=== PATIENT | female | born 1985 | race Asian ===

== ENCOUNTER 2017-06-25 08:56 | Inpatient (IN) | payer MEDICAID ==
[2017-06-25] MEDS: ONDANSETRON 4 MG INJ IV ×4 (09:11→22:03)
[2017-06-25] MEDS: HYDROmorphONE 0.5 MG/0.5 ML SYG IV ×3 (09:11→23:00)
[2017-06-25] MEDS: SOD CHLORIDE 0.9% 1,000 ML IV ×3 (09:11→23:00)
[2017-06-25 09:12] LABS: ADD MAN DIFF? NO
[2017-06-25 09:16] LABS: BASOPHILS % 0.3 % (0.0-2.0); EOSINOPHILS # 0.1 10^3/ul (0.0-0.5); EOSINOPHILS % 0.5 % (0.0-7.0); HEMATOCRIT 40.4 % (37.0-47.0); HEMOGLOBIN 13.4 g/dl (12.0-16.0); LYMPHOCYTES # 2.4 10^3/ul (0.8-2.9); MEAN CORPUSCULAR HEMOGLOBIN 30.2 pg (29.0-33.0); MEAN CORPUSCULAR HGB CONC 33.2 g/dl (32.0-37.0); MEAN CORPUSCULAR VOLUME 91.2 fl (82.0-101.0); MEAN PLATELET VOLUME 9.7 fl (7.4-10.4); MONOCYTE # 0.3 10^3/ul (0.3-0.9); MONOCYTES % 2.6 % (0.0-11.0); NEUTROPHIL # 8.1 10^3/ul (1.6-7.5); NEUTROPHILS % 74.2 % (39.0-77.0); PLATELET COUNT 415 10^3/UL (140-415); RED BLOOD COUNT 4.43 10^6/ul (4.20-5.40); RED CELL DISTRIBUTION WIDTH 13.2 % (11.5-14.5)
[2017-06-25 09:16] LABS: WHITE BLOOD COUNT 10.9 10^3/ul (4.8-10.8)
[2017-06-25 09:38] LABS: ALANINE AMINOTRANSFERASE 28 IU/L (13-69); ALBUMIN 4.6 g/dl (3.3-4.9); ALBUMIN/GLOBULIN RATIO 1.21; ALKALINE PHOSPHATASE 74 IU/L (42-121); ANION GAP 21 (8-16); ASPARTATE AMINO TRANSFERASE 21 IU/L (15-46); BLOOD UREA NITROGEN 11 mg/dl (7-20); CALCIUM 9.1 mg/dl (8.4-10.2); CARBON DIOXIDE 23 mmol/L (21-31); CHLORIDE 107 mmol/L (97-110); CREATININE 0.59 mg/dl (0.44-1.00); GLUCOSE 133 mg/dl (70-220); LIPASE 30 U/L (23-300); POTASSIUM 3.9 mmol/L (3.5-5.1); SODIUM 147 mmol/L (135-144); TOTAL PROTEIN 8.4 g/dl (6.1-8.1)
[2017-06-25 11:56] LABS: ADD UMIC YES; UR ASCORBIC ACID NEGATIVE (NEGATIVE); UR BACTERIA FEW /HPF (NONE SEEN); UR BILIRUBIN (Dip) NEGATIVE (NEGATIVE); UR BLOOD (Dip) 3+ mg/dL (NEGATIVE); UR CLARITY CLOUDY (CLEAR); UR COLOR RED (YELLOW); UR GLUCOSE (Dip) NEGATIVE (NEGATIVE); UR KETONES (Dip) NEGATIVE (NEGATIVE); UR LEUKOCYTE ESTERASE (Dip) NEGATIVE Leu/ul (NEGATIVE); UR MUCUS FEW /HPF (NONE SEEN); UR NITRITE (Dip) NEGATIVE (NEGATIVE); UR RBC > 182 /HPF (0-5); UR SPECIFIC GRAVITY (Dip) 1.023 (1.003-1.030); UR SQUAMOUS EPITHELIAL CELL FEW /HPF (FEW); UR TOTAL PROTEIN (Dip) 2+ mg/dl (NEGATIVE); UR UROBILINOGEN (Dip) NEGATIVE (NEGATIVE); UR WBC 62 /HPF (0-5)
[2017-06-25] MEDS: SOD CHLORIDE 0.9% 100 ML (12:53)
[2017-06-25] MEDS: IOHEXOL 300MG/ML 150 ML BTL (12:53)
[2017-06-25 13:21] LABS: ABNORMAL IP MESSAGE 1; ADD MAN DIFF? NO; BASOPHILS % 0.2 % (0.0-2.0); HEMATOCRIT 36.2 % (37.0-47.0); HEMOGLOBIN 11.9 g/dl (12.0-16.0); LYMPHOCYTES # 0.7 10^3/ul (0.8-2.9); LYMPHOCYTES % 2.8 % (15.0-51.0); MEAN CORPUSCULAR HEMOGLOBIN 30.4 pg (29.0-33.0); MEAN CORPUSCULAR HGB CONC 32.9 g/dl (32.0-37.0); MEAN CORPUSCULAR VOLUME 92.3 fl (82.0-101.0); MEAN PLATELET VOLUME 9.8 fl (7.4-10.4); MONOCYTE # 0.7 10^3/ul (0.3-0.9); MONOCYTES % 2.8 % (0.0-11.0); NEUTROPHIL # 22.3 10^3/ul (1.6-7.5); NEUTROPHILS % 93.5 % (39.0-77.0); PLATELET COUNT 331 10^3/UL (140-415); RED BLOOD COUNT 3.92 10^6/ul (4.20-5.40); RED CELL DISTRIBUTION WIDTH 13.4 % (11.5-14.5)
[2017-06-25 13:21] LABS: WHITE BLOOD COUNT 23.8 10^3/ul (4.8-10.8)
[2017-06-25] MEDS ORDERED: ACETAMINOPHEN 325 MG TAB PO (14:30)
[2017-06-25] MEDS ORDERED: ONDANSETRON 4 MG INJ IV (14:30)
[2017-06-25 16:14] LABS: HEMATOCRIT 39.8 % (37.0-47.0); HEMOGLOBIN 13.2 g/dl (12.0-16.0)
[2017-06-25] MEDS: morphine 2 MG INJ IV (16:14)
[2017-06-25] MEDS: LEVOFLOXACIN 500MG/D5W (PMX) 100 ML IVPB (16:17)
[2017-06-25 16:34] LABS: INR 0.98; PROTIME 13.1 Sec (11.9-14.9)
[2017-06-25 16:35] LABS: PARTIAL THROMBOPLASTIN TIME 27.6 Sec (25.0-35.0)
[2017-06-25] MEDS: DOCUSATE SODIUM 100 MG CAP PO (21:00)
[2017-06-26] MEDS: ACETAMINOPHEN 325 MG TAB PO ×6 (00:23→21:31)
[2017-06-26] MEDS: SOD CHLORIDE 0.9% 1,000 ML IV ×4 (00:28→20:27)
[2017-06-26 00:44] LABS: HEMATOCRIT 35.4 % (37.0-47.0); HEMOGLOBIN 11.6 g/dl (12.0-16.0)
[2017-06-26 01:15] LABS: LACTIC ACID 1.3 mmol/L (0.5-2.0)
[2017-06-26 05:19] LABS: ADD MAN DIFF? NO
[2017-06-26 05:29] LABS: BASOPHILS % 0.2 % (0.0-2.0); EOSINOPHILS % 0.1 % (0.0-7.0); HEMATOCRIT 37.1 % (37.0-47.0); HEMOGLOBIN 12.1 g/dl (12.0-16.0); LYMPHOCYTES # 2.2 10^3/ul (0.8-2.9); LYMPHOCYTES % 9.7 % (15.0-51.0); MEAN CORPUSCULAR HEMOGLOBIN 29.8 pg (29.0-33.0); MEAN CORPUSCULAR HGB CONC 32.6 g/dl (32.0-37.0); MEAN CORPUSCULAR VOLUME 91.4 fl (82.0-101.0); MEAN PLATELET VOLUME 9.9 fl (7.4-10.4); MONOCYTE # 0.5 10^3/ul (0.3-0.9); MONOCYTES % 2.1 % (0.0-11.0); NEUTROPHIL # 19.4 10^3/ul (1.6-7.5); NEUTROPHILS % 87.2 % (39.0-77.0); PLATELET COUNT 386 10^3/UL (140-415); RED BLOOD COUNT 4.06 10^6/ul (4.20-5.40); RED CELL DISTRIBUTION WIDTH 13.4 % (11.5-14.5)
[2017-06-26 05:29] LABS: WHITE BLOOD COUNT 22.3 10^3/ul (4.8-10.8)
[2017-06-26 05:48] LABS: PROTIME 15.4 Sec (11.9-14.9); PT RATIO 1.2
[2017-06-26 05:49] LABS: PARTIAL THROMBOPLASTIN TIME 35.5 Sec (25.0-35.0)
[2017-06-26 06:04] LABS: ALANINE AMINOTRANSFERASE 16 IU/L (13-69); ALBUMIN 3.9 g/dl (3.3-4.9); ALBUMIN/GLOBULIN RATIO 1.18; ALKALINE PHOSPHATASE 52 IU/L (42-121); ANION GAP 19 (8-16); ASPARTATE AMINO TRANSFERASE 20 IU/L (15-46); BILIRUBIN,INDIRECT 2.1 mg/dl (0-1.1); BILIRUBIN,TOTAL 2.1 mg/dl (0.2-1.3); BLOOD UREA NITROGEN 9 mg/dl (7-20); CALCIUM 8.6 mg/dl (8.4-10.2); CARBON DIOXIDE 26 mmol/L (21-31); CHLORIDE 105 mmol/L (97-110); CREATININE 0.62 mg/dl (0.44-1.00); GLUCOSE 112 mg/dl (70-220); MAGNESIUM 1.9 mg/dl (1.7-2.5); POTASSIUM 3.7 mmol/L (3.5-5.1); SODIUM 146 mmol/L (135-144); TOTAL PROTEIN 7.2 g/dl (6.1-8.1)
[2017-06-26] MEDS: HYDROmorphONE 0.5 MG/0.5 ML SYG IV ×3 (08:02→20:27)
[2017-06-26] MEDS: FAMOTIDINE 20 MG INJ IV (09:01)
[2017-06-26] MEDS: DOCUSATE SODIUM 100 MG CAP PO ×2 (09:01→20:27)
[2017-06-26] MEDS: LEVOFLOXACIN 500MG/D5W (PMX) 100 ML IVPB (16:02)
[2017-06-27] MEDS: ACETAMINOPHEN 325 MG TAB PO ×2 (04:00→05:04)
[2017-06-27] MEDS: SOD CHLORIDE 0.9% 1,000 ML IV ×3 (05:04→19:28)
[2017-06-27 06:13] LABS: ADD MAN DIFF? NO
[2017-06-27 06:15] LABS: BASOPHILS % 0.1 % (0.0-2.0); EOSINOPHILS % 0.1 % (0.0-7.0); HEMATOCRIT 33.6 % (37.0-47.0); HEMOGLOBIN 11.2 g/dl (12.0-16.0); LYMPHOCYTES # 0.8 10^3/ul (0.8-2.9); LYMPHOCYTES % 4.4 % (15.0-51.0); MEAN CORPUSCULAR HEMOGLOBIN 30.4 pg (29.0-33.0); MEAN CORPUSCULAR HGB CONC 33.3 g/dl (32.0-37.0); MEAN CORPUSCULAR VOLUME 91.1 fl (82.0-101.0); MEAN PLATELET VOLUME 10.1 fl (7.4-10.4); MONOCYTE # 0.3 10^3/ul (0.3-0.9); MONOCYTES % 1.4 % (0.0-11.0); NEUTROPHIL # 17.6 10^3/ul (1.6-7.5); NEUTROPHILS % 93.6 % (39.0-77.0); PLATELET COUNT 329 10^3/UL (140-415); RED BLOOD COUNT 3.69 10^6/ul (4.20-5.40); RED CELL DISTRIBUTION WIDTH 13.6 % (11.5-14.5)
[2017-06-27 06:15] LABS: WHITE BLOOD COUNT 18.8 10^3/ul (4.8-10.8)
[2017-06-27 06:34] LABS: ANION GAP 15 (8-16); BLOOD UREA NITROGEN 6 mg/dl (7-20); CALCIUM 8.3 mg/dl (8.4-10.2); CARBON DIOXIDE 21 mmol/L (21-31); CHLORIDE 109 mmol/L (97-110); CREATININE 0.59 mg/dl (0.44-1.00); GLUCOSE 96 mg/dl (70-220); MAGNESIUM 1.8 mg/dl (1.7-2.5); POTASSIUM 4.2 mmol/L (3.5-5.1); SODIUM 141 mmol/L (135-144)
[2017-06-27 06:44] LABS: INR 1.21; PROTIME 15.5 Sec (11.9-14.9); PT RATIO 1.2
[2017-06-27 06:45] LABS: PARTIAL THROMBOPLASTIN TIME 39.4 Sec (25.0-35.0)
[2017-06-27] MEDS: DOCUSATE SODIUM 100 MG CAP PO ×2 (08:00→20:52)
[2017-06-27] MEDS: FAMOTIDINE 20 MG INJ IV (08:00)
[2017-06-27] MEDS ORDERED: FENTAnyl 50 MCG/ML VIAL ×2 (10:04→11:18)
[2017-06-27] MEDS ORDERED: ROCURONIUM 50 MG INJ (10:26)
[2017-06-27] MEDS ORDERED: CLINDAMYCIN 900 MG/D5W (PMX) 50 ML IVPB (10:26)
[2017-06-27] MEDS ORDERED: LIDOCAINE 100 MG SYRINGE (10:26)
[2017-06-27] MEDS ORDERED: PROPOFOL 20 ML (10:26)
[2017-06-27] MEDS ORDERED: SUCCINYLCHOLINE CHLORIDE 100 MG/5 ML SYG IV (10:26)
[2017-06-27] MEDS ORDERED: SUGAMMADEX SODIUM 200 MG/2 ML VIAL IV (10:27)
[2017-06-27] MEDS ORDERED: ROPIVACAINE 0.5 % 30 ML VIAL (11:11)
[2017-06-27] MEDS ORDERED: MEPERIDINE 25 MG INJ IV (11:30)
[2017-06-27] MEDS ORDERED: ONDANSETRON 4 MG INJ IV (11:30)
[2017-06-27] MEDS ORDERED: METOCLOPRAMIDE 10 MG INJ IV (11:30)
[2017-06-27] MEDS ORDERED: HYDROmorphONE (0.2 MG/ML) 10ML SYG IV ×2 (11:30)
[2017-06-27] MEDS ORDERED: FENTAnyl 50 MCG/ML VIAL IV ×2 (11:30)
[2017-06-27] MEDS ORDERED: DIPHENHYDRAMINE 50 MG INJ IV (11:30)
[2017-06-27 12:35] LABS: ADD MAN DIFF? NO
[2017-06-27 12:40] LABS: BASOPHILS % 0.2 % (0.0-2.0); EOSINOPHILS % 0.2 % (0.0-7.0); HEMOGLOBIN 11.7 g/dl (12.0-16.0); LYMPHOCYTES # 1.6 10^3/ul (0.8-2.9); LYMPHOCYTES % 8.4 % (15.0-51.0); MEAN CORPUSCULAR HGB CONC 32.5 g/dl (32.0-37.0); MEAN CORPUSCULAR VOLUME 92.3 fl (82.0-101.0); MEAN PLATELET VOLUME 9.5 fl (7.4-10.4); MONOCYTE # 0.4 10^3/ul (0.3-0.9); MONOCYTES % 2.2 % (0.0-11.0); NEUTROPHIL # 16.3 10^3/ul (1.6-7.5); NEUTROPHILS % 87.9 % (39.0-77.0); PLATELET COUNT 332 10^3/UL (140-415); RED CELL DISTRIBUTION WIDTH 13.6 % (11.5-14.5)
[2017-06-27 12:40] LABS: WHITE BLOOD COUNT 18.5 10^3/ul (4.8-10.8)
[2017-06-27] MEDS: ONDANSETRON 4 MG INJ IV ×2 (12:51→17:04)
[2017-06-27] MEDS: HYDROmorphONE (0.2 MG/ML) 10ML SYG IV (12:51)
[2017-06-27] MEDS ORDERED: ACETAMINOPHEN 325 MG TAB PO (13:00)
[2017-06-27] MEDS: LEVOFLOXACIN 500MG/D5W (PMX) 100 ML IVPB (16:11)
[2017-06-27] MEDS: HYDROmorphONE 0.5 MG/0.5 ML SYG IV (20:52)
[2017-06-28] MEDS: SOD CHLORIDE 0.9% 1,000 ML IV ×3 (05:52→23:00)
[2017-06-28 06:42] LABS: ADD MAN DIFF? NO
[2017-06-28 06:45] LABS: EOSINOPHILS # 0.1 10^3/ul (0.0-0.5); EOSINOPHILS % 0.4 % (0.0-7.0); HEMATOCRIT 28.1 % (37.0-47.0); HEMOGLOBIN 9.4 g/dl (12.0-16.0); LYMPHOCYTES # 1.9 10^3/ul (0.8-2.9); LYMPHOCYTES % 15.1 % (15.0-51.0); MEAN CORPUSCULAR HEMOGLOBIN 30.4 pg (29.0-33.0); MEAN CORPUSCULAR HGB CONC 33.5 g/dl (32.0-37.0); MEAN CORPUSCULAR VOLUME 90.9 fl (82.0-101.0); MEAN PLATELET VOLUME 9.9 fl (7.4-10.4); MONOCYTE # 0.4 10^3/ul (0.3-0.9); MONOCYTES % 3.1 % (0.0-11.0); NEUTROPHIL # 10.2 10^3/ul (1.6-7.5); PLATELET COUNT 339 10^3/UL (140-415); RED BLOOD COUNT 3.09 10^6/ul (4.20-5.40); RED CELL DISTRIBUTION WIDTH 13.6 % (11.5-14.5)
[2017-06-28 06:45] LABS: WHITE BLOOD COUNT 12.6 10^3/ul (4.8-10.8)
[2017-06-28 07:11] LABS: ANION GAP 11 (8-16); BLOOD UREA NITROGEN 5 mg/dl (7-20); CALCIUM 7.8 mg/dl (8.4-10.2); CARBON DIOXIDE 24 mmol/L (21-31); CHLORIDE 109 mmol/L (97-110); CREATININE 0.56 mg/dl (0.44-1.00); GLUCOSE 91 mg/dl (70-220); POTASSIUM 3.3 mmol/L (3.5-5.1); SODIUM 141 mmol/L (135-144)
[2017-06-28] MEDS: DOCUSATE SODIUM 100 MG CAP PO ×2 (09:26→20:12)
[2017-06-28] MEDS: FAMOTIDINE 20 MG INJ IV (09:26)
[2017-06-28] MEDS: POTASSIUM CHLORIDE (SR) 20 MEQ TAB PO (09:32)
[2017-06-28] MEDS ORDERED: HYDROCODONE/APAP (5/325) TAB PO (15:30)
[2017-06-28] MEDS: LEVOFLOXACIN 500MG/D5W (PMX) 100 ML IVPB (16:11)
[2017-06-28] MEDS: IBUPROFEN 600 MG TAB GTB ×2 (16:11→21:30)
[2017-06-28] MEDS: CEPASTAT LOZENGE PO (21:30)
[2017-06-29] MEDS: SOD CHLORIDE 0.9% 1,000 ML IV ×2 (01:27→06:39)
[2017-06-29] MEDS: IBUPROFEN 600 MG TAB GTB ×3 (05:39→12:21)
[2017-06-29] MEDS: CEPASTAT LOZENGE PO (05:39)
[2017-06-29 05:42] LABS: ADD MAN DIFF? NO
[2017-06-29 05:49] LABS: BASOPHILS % 0.3 % (0.0-2.0); EOSINOPHILS # 0.2 10^3/ul (0.0-0.5); EOSINOPHILS % 2.4 % (0.0-7.0); HEMATOCRIT 29.3 % (37.0-47.0); HEMOGLOBIN 9.8 g/dl (12.0-16.0); LYMPHOCYTES % 26.5 % (15.0-51.0); MEAN CORPUSCULAR HEMOGLOBIN 30.3 pg (29.0-33.0); MEAN CORPUSCULAR HGB CONC 33.4 g/dl (32.0-37.0); MEAN CORPUSCULAR VOLUME 90.7 fl (82.0-101.0); MEAN PLATELET VOLUME 9.4 fl (7.4-10.4); MONOCYTE # 0.3 10^3/ul (0.3-0.9); MONOCYTES % 4.5 % (0.0-11.0); NEUTROPHIL # 4.9 10^3/ul (1.6-7.5); PLATELET COUNT 385 10^3/UL (140-415); RED BLOOD COUNT 3.23 10^6/ul (4.20-5.40); RED CELL DISTRIBUTION WIDTH 13.4 % (11.5-14.5)
[2017-06-29 05:49] LABS: WHITE BLOOD COUNT 7.5 10^3/ul (4.8-10.8)
[2017-06-29 06:14] LABS: ANION GAP 12 (8-16); BLOOD UREA NITROGEN 3 mg/dl (7-20); CALCIUM 8.1 mg/dl (8.4-10.2); CARBON DIOXIDE 25 mmol/L (21-31); CHLORIDE 111 mmol/L (97-110); CREATININE 0.47 mg/dl (0.44-1.00); GLUCOSE 91 mg/dl (70-220); POTASSIUM 3.5 mmol/L (3.5-5.1); SODIUM 144 mmol/L (135-144)
[2017-06-29] MEDS: DOCUSATE SODIUM 100 MG CAP PO (09:48)
[2017-06-29] MEDS: FAMOTIDINE 20 MG INJ IV (09:48)
== END 2017-06-29 16:00 | disposition home or self-care (01) | DRG 742 ==
LOC: E/R 08:56 → MS2 14:19
PROC: 0UB04ZZ Excision of Right Ovary, Percutaneous Endoscopic Approach (ICD-10-PCS; principal; 2017-06-27 09:58)
PROC: 0UN04ZZ Release Right Ovary, Percutaneous Endoscopic Approach (ICD-10-PCS; 2017-06-27 09:58)
PROC: 3E1M38X Irrigation of Peritoneal Cavity using Irrigating Substance, Percutaneous Approach, Diagnostic (ICD-10-PCS; 2017-06-27 09:58)
DX: N83.291 Other ovarian cyst, right side (principal); K66.1 Hemoperitoneum; K65.9 Peritonitis, unspecified; R65.10 Systemic inflammatory response syndrome (SIRS) of non-infectious origin without acute organ dysfunction; R71.0 Precipitous drop in hematocrit; N39.0 Urinary tract infection, site not specified; N83.511 Torsion of right ovary and ovarian pedicle
CPT/HCPCS: 36415; 74176; 74177; 76705; 76830; 76856; 80048; 80053; 81001; 83605; 83690; 83735; 84703; 85014; 85018; 85025; 85610; 85730; 86850; 86900; 86901; 87040; 88104; 88305; 96374; 96375; 96376; 99291-25